=== PATIENT | female | born 1970 | race Caucasian/White ===

== ENCOUNTER 2018-06-24 17:45 | Emergency (ER) | payer MEDICAID ==
[~2018-06-24] VITALS: Ht 167.6 cm; Wt 81.7 kg
[~2018-06-24 17:45] MED LIST: AZITHROMYCIN 2250 MG PO; HYDROCODON-ACE1 EAC7 PO; IBUPROFEN 800800 MG PO; MEDROL DOSPAK21 TA1 PO; NORCO 5-325 TA1 EACH PO; PERCOCET 5-3251 EACH PO; TESSALON PERLE100 MG PO; VENTOLIN HFA 1818 GM INH
[2018-06-24] MEDS ORDERED: PREMARIN0.45 MG PO (18:02)
[2018-06-24 19:03] LABS: URINE BILIRUBIN NEGATIVE (Negative); URINE BLOOD NEGATIVE (Negative); URINE CLARITY CLOUDY; URINE COLOR YELLOW; URINE GLUCOSE-RANDOM NEGATIVE (Negative); URINE KETONES NEGATIVE (Negative); URINE LEUKOCYTES-REFLEX NEGATIVE (Negative); URINE NITRITE-REFLEX NEGATIVE (Negative); URINE PROTEIN NEGATIVE (Negative); URINE UROBILINOGEN 0.2 E.U./dl (0.2-1.0)
[2018-06-24 19:08] LABS: ABSOLUTE EOSINOPHILS 0.1 thou/uL (0.0-0.7); ABSOLUTE LYMPHOCYTES 1.2 thou/uL (0.8-5.3); ABSOLUTE MONOCYTES 0.5 thou/uL (0.0-1.2); ABSOLUTE NEUTROPHILS 2.8 thou/uL (1.6-8.1); BASOPHILS 0.5 %; EOSINOPHILS 1.3 %; HEMATOCRIT 39.9 % (37.0-47.0); HEMOGLOBIN 13.5 gm/dL (12.0-15.0); MCH 31.7 pg (26.0-34.0); MCHC 33.8 g/dL (28.0-37.0); MCV 93.9 fL (80.0-100.0); MONOCYTES 10.9 %; NUCLEATED RBCS 0 /100WBC; PLATELET COUNT* 92 thou/uL (150-400); POLYS 61.3 %; RBC 4.25 mil/uL (4.20-5.00); RDW-CV 13.2 % (10.5-14.5); WBC 4.5 thou/uL (4.0-11.0)
[2018-06-24 19:14] LABS: MUCUS 0-3 Light strn/LPF (None Seen); SQUAMOUS 4-10 Moderate /LPF (0-3)
[2018-06-24 19:15] LABS: ANION GAP 8 mmol/L (7-16); BACTERIA-REFLEX 1-9 Few /HPF (None Seen); BUN 10 mg/dL (7-18); CASTS None Seen /LPF (None Seen); CHLORIDE 101 mmol/L (98-107); CO2 32 mmol/L (21-32); CREATININE 0.7 mg/dL (0.6-1.3); GLUCOSE 110 mg/dL (70-99); SODIUM 141 mmol/L (136-145); URINE RBC 0-2 Rare /HPF (0-2); URINE WBC-REFLEX 0-5 Rare /HPF (0-5)
[2018-06-24 19:16] LABS: AMORPHOUS URATES Many /LPF (None Seen)
[2018-06-24 19:21] LABS: ALBUMIN 3.8 g/dL (3.4-5.0); ALKALINE PHOSPHATASE 81 U/L (46-116); LIPASE 94 U/L (73-393); SGOT 16 U/L (15-37); SGPT 33 U/L (30-65); TOTAL BILIRUBIN 0.3 mg/dL (<0.1-1.0); TOTAL PROTEIN 7.5 g/dL (6.4-8.2); TROPONIN-I LEVEL <0.06 ng/mL (<0.06)
[2018-06-24] MEDS ORDERED: ZOFRAN4 MG PO (21:05)
[2018-06-24] MEDS ORDERED: NORCO 5-325 TA1 EACH PO (21:05)
[2018-06-24 21:22] VITALS: BP 115/73
--- NOTE | 2018-06-25 18:45 | EKG ---
[place] [address] ELECTROCARDIOGRAM REPORT Name: AURELIO AGRAWAL [id number] Admission: 06/24/18 Attend Phys: Discharge: 06/24/18 Date of : 68 Report #: [id number] THIS REPORT FOR: //name// [facility] ED Test Date: 2018-06-24 Test Time: 18:56:45 Pat Name: AURELIO AGRAWAL Department: Room: Gender: F [employer] Teacher: ADRIANA : 1970 Requested By: Joyce Peterson Order Number: [id number] MD: Joel Goode Measurements Intervals [place] Rate: 66 P: -20 SD: 134 QRS: 37 QRSD: 96 T: 29 QT: 392 QTc: 411 Interpretive Statements Sinus rhythm Compared to ECG 03/03/2017 14:05:41 No significant changes Electronically Signed On 06-25-2018 18:45:37 DIE INSPECTOR by Joel Goode [email or web address] <ELECTRONICALLY SIGNED> By: Joel Goode MD, [facility] 06/25/18 1845 1856 1856 Joel Goode MD, FACC /EPI
== END 2018-06-24 21:22 | disposition home or self-care (01) ==
LOC: M.ERS 17:45
PROVIDERS: Nurse Practitioner Family
DX: K80.80 Other cholelithiasis without obstruction (principal); K80.50 Calculus of bile duct without cholangitis or cholecystitis without obstruction; R19.7 Diarrhea, unspecified; F17.210 Nicotine dependence, cigarettes, uncomplicated; Z98.890 Other specified postprocedural states; Z85.41 Personal history of malignant neoplasm of cervix uteri

== ENCOUNTER 2019-09-14 21:59 | Inpatient (IN) | payer OTHER, MEDICAID ==
[~2019-09-14] VITALS: Ht 167.6 cm; Wt 81.1 kg
--- NOTE | ~2019-09-14 | CON ---
[address] [address] CONSULTATION Name: AURELIO AGRAWAL Room: [address] IN M.R.#: [id number] Admission: 09/14/19 Attend Phys: Renetta Honeycutt MD Discharge: Date of : 68 Report #: [id number] THIS REPORT FOR: //name// cc: CHANCE Ayala family physician/PCP CHANCE - Lucy family physician/PCP ~ THIS REPORT FOR: //name// CC: CHANCE physician/PCP Renetta Honeycutt DATE OF SERVICE: 09/15/2019 HISTORY OF PRESENT ILLNESS: This is a pleasant 49-year-old female with past medical history significant for cervical cancer, who is presenting for evaluation of abdominal pain. The patient reports on and off abdominal pain in the last few weeks, but she reports the pain was particularly severe and began last night. Pain is located in the upper abdomen, localized; sometimes radiates to the back, associated with nausea, but no significant vomiting. The patient reports the pain was relieved by pain medication and IV fluids after she presented to the hospital. PAST MEDICAL HISTORY: History of cervical cancer. PAST SURGICAL HISTORY: History of hysterectomy. SOCIAL HISTORY: The patient reports smoking half pack per day, takes alcohol intermittently. REVIEW OF SYSTEMS: A comprehensive 10-point review of systems is negative except for what was mentioned in the HPI. PHYSICAL EXAMINATION: GENERAL: The patient is alert, awake, oriented x 3. HEENT: Pupils are equal, round, and reactive to light and accommodation. Mucous membranes are moist. There is no congestion. LUNGS: Clear to auscultation bilaterally. CARDIOVASCULAR: Rate and rhythm regular, S1, S2 present. ABDOMEN: Soft. There is no distention, guarding or rigidity. EXTREMITIES: Warm, well perfused. Tenderness to palpation is seen in the epigastric right upper quadrant region. LABORATORY DATA: Hemoglobin 13.0, hematocrit 37.2, platelet count 95, WBC count 5.1. Sodium 143, potassium 3.4, chloride 104, bicarbonate 30, BUN 14, creatinine 0.9, total bilirubin 0.2, AST 35, ALT 38, alkaline phosphatase 80, lipase 1303. 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 ASSESSMENT AND PLAN: Pleasant 49-year-old female presenting with first episode of gallstone pancreatitis. Pancreatitis is mild in severity. There are no local complications. Would recommend advancing her to clear liquids. Surgery consultation is recommended for interval cholecystectomy. The patient is able to tolerate a p.o. diet. She should be able to be discharged home. Thank you for this consultation. By: [id number] 1916Cheng Youngblood MD /nt
[~2019-09-14 21:59] MED LIST changes: +PREMARIN0.45 MG PO; +ZOFRAN4 MG PO
[2019-09-14 22:08] VITALS: BP 126/81
[2019-09-14] MEDS ORDERED: PROTONIX40 M2 PO (22:16)
[2019-09-14 22:40] LABS: ABSOLUTE EOSINOPHILS 0.1 thou/uL (0.0-0.7); ABSOLUTE LYMPHOCYTES 1.5 thou/uL (0.8-5.3); ABSOLUTE MONOCYTES 0.6 thou/uL (0.0-1.2); ABSOLUTE NEUTROPHILS 2.8 thou/uL (1.6-8.1); BASOPHILS 0.5 %; EOSINOPHILS 1.7 %; HEMATOCRIT 37.2 % (37.0-47.0); LYMPHOCYTES 30.5 %; MCH 32.2 pg (26.0-34.0); MCHC 34.9 g/dL (28.0-37.0); MCV 92.4 fL (80.0-100.0); MONOCYTES 12.6 %; MPV 8.9 fl. (7.2-11.1); NUCLEATED RBCS 0 /100WBC; PLATELET COUNT* 95 thou/uL (150-400); POLYS 54.7 %; RBC 4.03 mil/uL (4.20-5.00); RDW-CV 13.2 % (10.5-14.5); WBC 5.1 thou/uL (4.0-11.0)
[2019-09-14 22:46] LABS: CALCIUM 8.4 mg/dL (8.5-10.1); CREATININE 0.9 mg/dL (0.6-1.3); POTASSIUM 3.4 mmol/L (3.5-5.1)
[2019-09-14 22:50] LABS: ALBUMIN 3.9 g/dL (3.4-5.0); MAGNESIUM 1.8 mg/dL (1.8-2.4); TOTAL BILIRUBIN 0.2 mg/dL (<0.1-1.0); TOTAL PROTEIN 7.3 g/dL (6.4-8.2)
[2019-09-14 23:47] LABS: URINE BILIRUBIN NEGATIVE (Negative); URINE BLOOD NEGATIVE (Negative); URINE CLARITY CLEAR; URINE COLOR YELLOW; URINE GLUCOSE-RANDOM NEGATIVE (Negative); URINE KETONES NEGATIVE (Negative); URINE LEUKOCYTES-REFLEX NEGATIVE (Negative); URINE NITRITE-REFLEX NEGATIVE (Negative); URINE PROTEIN NEGATIVE (Negative); URINE UROBILINOGEN 0.2 E.U./dl (0.2-1.0)
[2019-09-14 23:55] LABS: AMP/METHAMP POSITIVE (Negative); BARBITURATES Negative (Negative); BENZODIAZEPINES Negative (Negative); COCAINE Negative (Negative); METHADONE Negative (Negative); OPIATES Negative (Negative); PCP Negative (Negative); THC Negative (Negative)
[2019-09-15 01:20] VITALS: BP 126/78
[2019-09-15 01:22] VITALS: BP 119/78
[2019-09-15 08:26] VITALS: BP 111/69
[2019-09-15 12:39] VITALS: BP 100/64
[2019-09-15 16:00] VITALS: BP 105/60
[2019-09-15 20:00] VITALS: BP 99/64
[2019-09-16] VITALS: BP 100/60
[2019-09-16 03:53] LABS: ABSOLUTE EOSINOPHILS 0.1 thou/uL (0.0-0.7); ABSOLUTE MONOCYTES 0.4 thou/uL (0.0-1.2); ABSOLUTE NEUTROPHILS 1.8 thou/uL (1.6-8.1); BASOPHILS 0.6 %; EOSINOPHILS 1.9 %; HEMATOCRIT 31.9 % (37.0-47.0); LYMPHOCYTES 30.9 %; MCH 32.4 pg (26.0-34.0); MCHC 34.5 g/dL (28.0-37.0); MCV 93.9 fL (80.0-100.0); MONOCYTES 13.3 %; NUCLEATED RBCS 0 /100WBC; PLATELET COUNT* 68 thou/uL (150-400); POLYS 53.3 %; RDW-CV 13.2 % (10.5-14.5); WBC 3.4 thou/uL (4.0-11.0)
[2019-09-16 04:07] LABS: CALCIUM 7.8 mg/dL (8.5-10.1); CREATININE 0.7 mg/dL (0.6-1.3); MAGNESIUM 1.9 mg/dL (1.8-2.4); PHOSPHORUS* 3.2 mg/dL (2.5-4.9); POTASSIUM 3.5 mmol/L (3.5-5.1); TOTAL PROTEIN 5.8 g/dL (6.4-8.2)
[2019-09-16 07:45] VITALS: BP 102/49
[2019-09-16 11:50] VITALS: BP 108/63
[2019-09-16 20:00] VITALS: BP 132/82
[2019-09-16 23:52] VITALS: BP 111/59
[2019-09-17 03:57] LABS: ABSOLUTE LYMPHOCYTES 1.1 thou/uL (0.8-5.3); ABSOLUTE MONOCYTES 0.3 thou/uL (0.0-1.2); ABSOLUTE NEUTROPHILS 1.1 thou/uL (1.6-8.1); BASOPHILS 0.8 %; EOSINOPHILS 1.8 %; HEMATOCRIT 31.1 % (37.0-47.0); HEMOGLOBIN 10.7 gm/dL (12.0-15.0); LYMPHOCYTES 41.5 %; MCH 32.4 pg (26.0-34.0); MCHC 34.5 g/dL (28.0-37.0); MONOCYTES 11.7 %; MPV 9.6 fl. (7.2-11.1); NUCLEATED RBCS 0 /100WBC; PLATELET COUNT* 55 thou/uL (150-400); POLYS 44.2 %; RBC 3.31 mil/uL (4.20-5.00); RDW-CV 13.4 % (10.5-14.5); WBC 2.6 thou/uL (4.0-11.0)
[2019-09-17 04:26] LABS: CALCIUM 7.6 mg/dL (8.5-10.1); CREATININE 0.8 mg/dL (0.6-1.3); MAGNESIUM 1.8 mg/dL (1.8-2.4); PHOSPHORUS* 3.5 mg/dL (2.5-4.9); POTASSIUM 3.7 mmol/L (3.5-5.1); TOTAL BILIRUBIN 0.5 mg/dL (<0.1-1.0); TOTAL PROTEIN 5.9 g/dL (6.4-8.2)
[2019-09-17 08:00] VITALS: BP 104/61
[2019-09-17 15:59] VITALS: BP 113/66
[2019-09-17 20:00] VITALS: BP 137/73
[2019-09-18 00:56] VITALS: BP 125/76
[2019-09-18 02:07] LABS: HEPATITIS B SURFACE AG Negative (Negative)
[2019-09-18 08:00] VITALS: BP 121/70
[2019-09-18 09:16] LABS: ABSOLUTE EOSINOPHILS 0.1 thou/uL (0.0-0.7); ABSOLUTE LYMPHOCYTES 1.1 thou/uL (0.8-5.3); ABSOLUTE MONOCYTES 0.4 thou/uL (0.0-1.2); ABSOLUTE NEUTROPHILS 1.5 thou/uL (1.6-8.1); BASOPHILS 0.9 %; EOSINOPHILS 1.9 %; HEMATOCRIT 31.1 % (37.0-47.0); HEMOGLOBIN 10.8 gm/dL (12.0-15.0); LYMPHOCYTES 34.5 %; MCH 32.5 pg (26.0-34.0); MCHC 34.8 g/dL (28.0-37.0); MCV 93.3 fL (80.0-100.0); MONOCYTES 12.2 %; MPV 10.2 fl. (7.2-11.1); NUCLEATED RBCS 0 /100WBC; PLATELET COUNT* 66 thou/uL (150-400); POLYS 50.5 %; RBC 3.34 mil/uL (4.20-5.00); RDW-CV 13.3 % (10.5-14.5); WBC 3.1 thou/uL (4.0-11.0)
[2019-09-18 09:33] LABS: ALBUMIN 3.1 g/dL (3.4-5.0); CREATININE 0.7 mg/dL (0.6-1.3); POTASSIUM 4.4 mmol/L (3.5-5.1); TOTAL BILIRUBIN 0.3 mg/dL (<0.1-1.0); TOTAL PROTEIN 6.2 g/dL (6.4-8.2)
[2019-09-18] MEDS ORDERED: NORCO 5-325 TA1 EAC1 PO (12:49)
[2019-09-18 15:16] VITALS: BP 121/70
== END 2019-09-18 15:40 | disposition home or self-care (01) | DRG 438 ==
LOC: M.ERS 21:59 → M.TBA-ER 23:44 → M.2W 23:44
PROVIDERS: Emergency Medicine; Internal Medicine; Surgery; ADMIT Internal Medicine
DX: K85.10 Biliary acute pancreatitis without necrosis or infection (principal); D61.811 Other drug-induced pancytopenia; R65.10 Systemic inflammatory response syndrome (SIRS) of non-infectious origin without acute organ dysfunction; D69.3 Immune thrombocytopenic purpura; K75.9 Inflammatory liver disease, unspecified; F17.210 Nicotine dependence, cigarettes, uncomplicated; K21.9 Gastro-esophageal reflux disease without esophagitis; Z85.41 Personal history of malignant neoplasm of cervix uteri; Z92.21 Personal history of antineoplastic chemotherapy; Z72.89 Other problems related to lifestyle; Z92.3 Personal history of irradiation; Z79.899 Other long term (current) drug therapy; Z90.710 Acquired absence of both cervix and uterus

== ENCOUNTER 2021-04-14 16:45 | Emergency (ER) | payer OTHER ==
[~2021-04-14] VITALS: Ht 167.6 cm; Wt 67.6 kg
[~2021-04-14 16:45] MED LIST changes: +NORCO 5-325 TA1 EAC1 PO; +PROTONIX40 M2 PO
[2021-04-14 16:51] VITALS: BP 129/80
== END 2021-04-14 19:00 | disposition left against medical advice (07) ==
LOC: M.ERS 16:45
DX: M54.9 Dorsalgia, unspecified (principal); Z53.21 Procedure and treatment not carried out due to patient leaving prior to being seen by health care provider